=== PATIENT | female | born 1970 | race Two or more races ===

== ENCOUNTER 2018-04-29 23:15 | Emergency (ER) | payer OTHER ==
[~2018-04-29] VITALS: Ht 149.9 cm; Wt 59.0 kg
[2018-04-29] MEDS ORDERED: METFORMIN HCL500 MG PO (23:53)
== END 2018-04-30 04:10 | disposition home or self-care (01) ==
LOC: EDBD 23:15 → ER 23:15
DX: R55 Syncope and collapse (principal); I95.89 Other hypotension